=== PATIENT | female | born 1980 | race Caucasian/White ===

== ENCOUNTER 2023-04-15 13:33 | Emergency (ER) | payer OTHER ==
[~2023-04-15] VITALS: Ht 154.9 cm; Wt 88.5 kg
[2023-04-15 14:24] VITALS: BP 123/83; O2SAT 96
== END 2023-04-15 14:26 | disposition home or self-care (01) ==
LOC: ER 13:33
DX: R42 Dizziness and giddiness (principal); R10.13 Epigastric pain; T50.995A Adverse effect of other drugs, medicaments and biological substances, initial encounter; E11.9 Type 2 diabetes mellitus without complications; Y92.89 Other specified places as the place of occurrence of the external cause
CPT/HCPCS: A4663